=== PATIENT | male | born 1980 | race Caucasian/White ===

== ENCOUNTER 2021-09-12 01:44 | Emergency (ER) | payer OTHER ==
[2021-09-12 02:02] VITALS: TEMP 98.7
[2021-09-12] MEDS ORDERED: ONDANSETRON 4 MG/2 ML VIAL IVP STA (02:08)
[2021-09-12] MEDS ORDERED: KETOROLAC 30 MG/ML 1 ML VIAL IVP STA (02:08)
[2021-09-12] MEDS ORDERED: SODIUM CHLORIDE 0.9% 2,000 ML IV STA (02:08)
[2021-09-12] MEDS ORDERED: HYDROmorphone 0.5 MG/0.5 ML SYRINGE IVP STA (02:08)
[2021-09-12 02:30] LABS: Appearance,Urine Clear (Clear); Bilirubin,Urine Negative (Negative); Blood,Urine Moderate (Negative); Calcium Oxalate Crystals,Urine Rare /hpf; Color,Urine Yellow; Glucose,Urine (UA) Negative (Negative); Ketones,Urine Negative (Negative); Leukocyte Esterase,Urine Negative (Negative); Mucus,Urine Occasional /hpf; Nitrite,Urine Negative (Negative); Protein,Urine Negative (Negative); RBC,Urine 15 /hpf (0-5); Specific Gravity,Urine 1.027 (1.001-1.035); WBC,Urine 1 /hpf (0-5)
--- NOTE | 2021-09-12 02:38 | ED ---
Back Pain HPI - General Chief Complaint: Back Pain/Injury Stated Complaint: post op, back/pelvic pain Time Seen by Provider: 09/12/21 02:08 Source: patient, RN notes reviewed Mode of arrival: ambulatory Limitations: no limitations - History of Present Illness Initial Comments: This is a 4-year-old male presents emergency Department with chief complaint of pain. Patient states that he had an 8 mm stone in his kidney which was woken up by lithotripsy yesterday by Dr. Aldrich, states she's was sent home but the pain has been increasing. He did have some particles of the stone in his urine. He states the pain is increasing to where his [place] and ibuprofen are not helping. Patient had some nausea no significant hematuria but he has had some urinary frequency. No chest pain or shortness breath. No fevers or chills. - Related Data Allergies Allergy/AdvReac Type Severity Reaction Status Date / Time No Known Allergies Allergy Verified 09/12/21 02:09 Review of Systems ROS Statement: Those systems with pertinent positive or pertinent negative responses have been documented in the HPI. ROS Other: All systems not noted in ROS Statement are negative. Past Medical History Past Medical History: Deep Vein Thrombosis (DVT), Pulmonary Embolus (PE) Additional Past Medical History / Comment(s): kidney stones, History of Any Multi-Drug Resistant Organisms: None Reported Additional Past Surgical History / Comment(s): lithotripsy Past Psychological History: Anxiety, Depression Smoking Status: Never smoker Past Alcohol Use History: None Reported Past Drug Use History: None Reported General Exam Limitations: no limitations General appearance: alert, in no apparent distress Head exam: Present: atraumatic, normocephalic, normal inspection Eye exam: Present: normal appearance, PERRL, EOMI. Absent: scleral icterus, conjunctival injection, periorbital swelling ENT exam: Present: normal exam, normal oropharynx, mucous membranes moist Neck exam: Present: normal inspection, full ROM. Absent: tenderness, meningismus, lymphadenopathy Respiratory exam: Present: normal lung sounds bilaterally. Absent: respiratory distress, wheezes, rales, rhonchi, stridor Cardiovascular Exam: Present: regular rate, normal rhythm, normal heart sounds. Absent: systolic murmur, diastolic murmur, rubs, gallop, clicks GI/Abdominal exam: Present: soft, tenderness, normal bowel sounds. Absent: distended, guarding, rebound, rigid Back exam: Present: CVA tenderness (L). Absent: CVA tenderness (R) Neurological exam: Present: alert Skin exam: Present: warm, dry, intact, normal color. Absent: rash Course Vital Signs 09/12/21 01:58 Temperature 98.7 F Pulse Rate 73 Respiratory 18 Rate Blood Pressure 144/90 O2 Sat by Pulse 96 Oximetry Medical Decision Making - Medical Decision Making 40-year-old presented for flank pain status post lithotripsy. Patient will hydrated, given antiemetics and pain control patient's symptoms improved patient will contact urologist tomorrow return for worsening changes symptoms. - Lab Data Result diagrams: 09/12/21 02:20 09/12/21 02:20 Lab Results 09/12/21 09/12/21 09/12/21 Range/Units 02:08 02:20 02:20 WBC 15.4 H (3.8-10.6) k/uL RBC 4.81 (4.30-5.90) m/uL Hgb 13.8 (13.0-17.5) gm/dL Hct 41.7 (39.0-53.0) % MCV 86.8 (80.0-100.0) fL MCH 28.7 (25.0-35.0) pg MCHC 33.1 (31.0-37.0) g/dL RDW 13.6 (11.5-15.5) % Plt Count 318 (150-450) k/uL MPV 6.9 Neutrophils % 87 % Lymphocytes % 6 % Monocytes % 4 % Eosinophils % 1 % Basophils % 0 % Neutrophils # 13.5 H (1.3-7.7) k/uL Lymphocytes # 0.9 L (1.0-4.8) k/uL Monocytes # 0.7 (0-1.0) k/uL Eosinophils # 0.2 (0-0.7) k/uL Basophils # 0.1 (0-0.2) k/uL Sodium 138 (137-145) mmol/L Potassium 4.8 (3.5-5.1) mmol/L Chloride 105 (98-107) mmol/L Carbon Dioxide 22 (22-30) mmol/L Anion Gap 11 mmol/L BUN 19 (9-20) mg/dL Creatinine 1.25 (0.66-1.25) mg/dL Est GFR (CKD-EPI)AfAm 83 (>60 ml/min/1.73 sqM) Est GFR (CKD-EPI)NonAf 72 (>60 ml/min/1.73 sqM) Glucose 128 H (74-99) mg/dL Calcium 9.4 (8.4-10.2) mg/dL Total Bilirubin 0.5 (0.2-1.3) mg/dL AST 36 (17-59) U/L ALT 34 (4-49) U/L Alkaline Phosphatase 59 (38-126) U/L Total Protein 7.5 (6.3-8.2) g/dL Albumin 4.5 (3.5-5.0) g/dL Amylase 47 (30-110) U/L Lipase 51 (23-300) U/L Urine Color Yellow Urine Appearance Clear (Clear) Urine pH 6.0 (5.0-8.0) Ur Specific [place] 1.027 (1.001-1.035) Urine Protein Negative (Negative) Urine Glucose (UA) Negative (Negative) Urine Ketones Negative (Negative) Urine Blood Moderate H (Negative) Urine Nitrite Negative (Negative) Urine Bilirubin Negative (Negative) Urine Urobilinogen 3.0 (<2.0) mg/dL Ur Leukocyte Esterase Negative (Negative) Urine RBC 15 H (0-5) /hpf Urine WBC 1 (0-5) /hpf Calcium Oxalate Crystal Rare H (None) /hpf Urine Mucus Occasional H (None) /hpf Disposition Clinical Impression: Flank pain, Hx of lithotripsy, Kidney stone Disposition: HOME SELF-CARE Condition: Stable Instructions (If sedation given, give patient instructions): Lithotripsy (DC) Additional Instructions: Please return to the Emergency Department if symptoms worsen or any other concerns. Is patient prescribed a controlled substance at d/c from ED?: No Referrals: Srinivasan Hunter MD [Primary Care Provider] - 1-2 days Time of Disposition: 03:34
[2021-09-12 02:40] LABS: Basophils # (A) 0.1 k/uL (0-0.2); Basophils % (A) 0 %; Eosinophils # (A) 0.2 k/uL (0-0.7); Eosinophils % (A) 1 %; HCT 41.7 % (39.0-53.0); HGB 13.8 gm/dL (13.0-17.5); Lymphocytes # (A) 0.9 k/uL (1.0-4.8); Lymphocytes % (A) 6 %; MCH 28.7 pg (25.0-35.0); MCHC 33.1 g/dL (31.0-37.0); MCV 86.8 fL (80.0-100.0); Mean Platelet Volume 6.9; Monocytes # (A) 0.7 k/uL (0-1.0); Monocytes % (A) 4 %; Neutrophils # (A) 13.5 k/uL (1.3-7.7); Neutrophils % (A) 87 %; Platelet Count 318 k/uL (150-450); RBC 4.81 m/uL (4.30-5.90); RDW 13.6 % (11.5-15.5); WBC 15.4 k/uL (3.8-10.6)
[2021-09-12 02:51] LABS: Albumin 4.5 g/dL (3.5-5.0); Calcium 9.4 mg/dL (8.4-10.2); Potassium 4.8 mmol/L (3.5-5.1); Total Bilirubin 0.5 mg/dL (0.2-1.3); Total Protein 7.5 g/dL (6.3-8.2)
--- NOTE | 2021-09-12 02:58 | XR ---
EXAMINATION TYPE: XR KUB DATE OF EXAM: 09/12/2021 COMPARISON: NONE HISTORY: Postop lithotripsy TECHNIQUE: 2 views upright FINDINGS: There is no sign of intestinal obstruction or pneumoperitoneum. Fecal pattern is normal. Th ere is no evidence of a mass. Lung bases are clear. IMPRESSION: Nonacute abdomen.
[2021-09-12] MEDS ORDERED: HYDROmorphone 1 MG/ML 1 ML SYRINGE IVP STA (02:59)
[2021-09-12] MEDS ORDERED: TAMSULOSIN 0.4 MG CAP.ER.24H PO STA (03:49)
[2021-09-12 05:08] VITALS: BP 120/70; PULSE 95; RESP 16
== END 2021-09-12 05:09 | disposition home or self-care (01) ==
LOC: EC 01:44
DX: N20.0 Calculus of kidney (principal); Z87.442 Personal history of urinary calculi; Z86.718 Personal history of other venous thrombosis and embolism; Z86.711 Personal history of pulmonary embolism
CPT/HCPCS: 99284; 96374; 96376; 96375; 36415; 80053; 82150; 83690; 85025; 81001; 74018; 96361; J2405; J1885; J1170 ×2

== ENCOUNTER 2022-06-01 06:18 | Day surgery (SDC) | payer OTHER ==
[~2022-06-01 06:18] MED LIST: LACTATED RINGERS 1,000 ML IV SCH; LIDOCAINE 1% (10MG/ML) FOR IV START INTRADERMA PRN
[2022-06-01 06:45] VITALS: TEMP 97.8
[2022-06-01] MEDS ORDERED: LIDOCAINE 2% INJ 20 MG/ML (2 ML VIAL) ONE (07:26)
[2022-06-01] MEDS ORDERED: PROPOFOL 10 MG/ML 20 ML VIAL IV ONE (07:26)
--- NOTE | 2022-06-01 07:49 | P.PCN ---
Date of Procedure: 06/01/22 Procedure(s) Performed: Brief history: Patient is a pleasant 41-year-old white male scheduled for an elective upper endoscopy as well as colonoscopy as a part of evaluation of abdominal pain, excessive belching, intermittent lower abdominal discomfort with change in bowel habits for the last 2 years duration. Procedure performed: Esophagogastroduodenoscopy with biopsy Colonoscopy with random biopsy Preoperative diagnosis: Abdominal bloating/excessive belching Lower abdominal pain and change in bowel habits Anesthesia: MAC Procedure: After informed consent was obtained from the patient was brought into the endoscopy unit and IV sedation was administered by anesthesia under continuous monitoring. Initially upper endoscopy was done. The Olympus GF 160 video endoscope was inserted inserted into the mouth and esophagus intubated without any difficulty and was gradually advanced into the stomach and duodenum and carefully examined. The bulb and second part of the duodenum appeared normal. Abscesses were done from the duodenum to rule out celiac disease. The scope was then withdrawn into the stomach adequately insufflated with air and upon careful examination the antrum had mild gastritis and biopsies were done from this area. The body, cardia and fundus appeared normal. The scope was then withdrawn into the esophagus. The GE junction was located at 40 cm to the incisors. It appeared regular with no erythema erosions or ulcerations. Rest of the esophagus appeared normal. Abscesses were done from the distal esophagus. Patient tolerated the procedure well. At this time the patient continued to remain sedation. Initial digital rectal examination was normal. Olympus CF 160 video colonoscope was then inserted into the rectum and gradually advanced to the cecum without any difficulty. Careful examination was performed as the scope was gradually being withdrawn. The prep was excellent. The cecum, ascending colon, transverse colon, descending colon, sigmoid colon and rectum appeared normal. Abscesses were done from ascending and descending colon to rule out metastatic/collagenous colitis Retroflexion was performed in the rectum and no lesions were noted. Patient tolerated the procedure well. Impression: 1. Upper endoscopy revealed mild antral gastritis 2. Colonoscopy was within normal limits with no evidence of colitis or colorectal neoplasia Recommendations: Findings of this examination were discussed with the patient as well as his family. He was advised to follow with the biopsy results. He'll be seen in office in 3-4 weeks.
[2022-06-01 07:53] VITALS: PULSE 80
[2022-06-01 08:12] VITALS: BP 125/68; RESP 18
== END 2022-06-01 08:23 | disposition home or self-care (01) ==
LOC: ORWHC2ENDO 06:18
PROVIDERS: ATTEND Internal Medicine Gastroenterology
DX: K29.50 Unspecified chronic gastritis without bleeding (principal); K20.90 Esophagitis, unspecified without bleeding; K52.9 Noninfective gastroenteritis and colitis, unspecified; E66.01 Morbid (severe) obesity due to excess calories; Z68.41 Body mass index [BMI] 40.0-44.9, adult; Z86.711 Personal history of pulmonary embolism; Z79.899 Other long term (current) drug therapy
CPT/HCPCS: 88305; 88313; 45380; 43239; J2704; J2001